=== PATIENT | female | born 1945 | race Caucasian/White ===

== ENCOUNTER 2022-08-23 01:12 | Emergency (ER) | payer MEDICARE ==
[~2022-08-23] VITALS: Ht 152.4 cm; Wt 65.3 kg
--- NOTE | 2022-08-23 01:40 | ED General ---
General Chief Complaint: Dizziness/Syncope Stated Complaint: DIZZY Nursing Triage Note: Patient states that she had gotten dizzy at approximately 23:00 last night. Patient also describes having a headache with this episode. Patient states that the dizziness has resolved but she still has a small headache. Patient has a history of HTN and she last took her blood pressure medication last night. Patient wanted to get checked out. Patient also had glaucoma surgery 1 week ago. Source of Information: Patient Exam Limitations: No Limitations History of Present Illness Date Seen by Provider: Aug 23, 2022 Time Seen by Provider: 01:16 Initial Comments 76-year-old female with past medical history of hypertension and hyperlipidemia coming in after she felt dizzy like the room was spinning around 11 PM last night. She states this was when she sat up quickly, the room was spinning around her, she laid back down. This lasted a few minutes, and the spinning sensation went away. Did have a headache shortly afterwards which now has resolved. The room spinning sensation resolved after less than 30 minutes. This has happened before and she has been told in the past that she potentially has vertigo. Does not take any medications for it. Has recently gotten over a sinus infection and finished antibiotics. Also had eye surgery about a week ago. She is otherwise denying any fever, chest pain, shortness of breath, abdominal pain, nausea, vomiting, diarrhea, focal weakness or numbness, current vision changes, hearing changes, speech changes, or any other concerns. She walked to the car and then walked through the ER she states. Allergies and Home Medications Allergies Coded Allergies: acetaminophen (Verified Allergy, Intermediate, Hives, 08/23/22) Patient Home Medication List Home Medication List Reviewed: Yes Meclizine HCl (Meclizine HCl) 25 Mg Tablet, 12.5 MG PO Q12H PRN for VERTIGO Prescribed by: LONDON TELLEZ on 08/23/22 0208 Review of Systems Review of Systems Constitutional: No fever EENTM: other (Vertigo which has resolved) Respiratory: no symptoms reported Cardiovascular: no symptoms reported Gastrointestinal: no symptoms reported Genitourinary: no symptoms reported Musculoskeletal: no symptoms reported Skin: no symptoms reported Psychiatric/Neurological: Headache (Mild) Immunological/Allergic: no symptoms reported Past Rouzcup-Hipiju-Siqmxz Hx Patient Social History Tobacco Use?: No Substance use?: No Alcohol Use?: No Pt feels they are or have been: No Immunizations Up To Date COVID19 Vaccine Advocacy Director: [place] Past Medical History Surgery/Hospitalization HX: HTN Surgeries: Yes (Eye surgery) Physical Exam Vital Signs Vital Signs - First Documented 08/23/22 01:15 Temp 37.0 Pulse 82 Resp 16 B/P (MAP) 215/81 (125) Pulse Ox 95 O2 Delivery Room Air Capillary Refill : Less Than 3 Seconds Height, Weight, BMI Height: '" Weight: lbs. oz. kg; 28.00 BMI Method: General Appearance: No Apparent Distress, WD/WN Eyes: Bilateral Eye Normal Inspection, Bilateral Eye PERRL, Bilateral Eye EOMI HEENT: PERRL/EOMI, TMs Normal, Normal ENT Inspection, Pharynx Normal Neck: Full Range of Motion, Normal Inspection, Non Tender, Supple Respiratory: Chest Non Tender, Lungs Clear, Normal Breath Sounds, No Accessory Muscle Use, No Respiratory Distress Cardiovascular: Regular Rate, Rhythm, No Edema, Normal Peripheral Pulses Gastrointestinal: Normal Bowel Sounds, Non Tender, Soft Back: Normal Inspection Extremity: Normal Capillary Refill, Normal Inspection, Normal Range of Motion, Non Tender, No Calf Tenderness, No Pedal Edema Neurologic/Psychiatric: Alert, Oriented x3, No Motor/Sensory Deficits, Normal Mood/Affect, night custodian II-XII Norm as Tested, Other (Normal [id number]-[id number], normal ptiy-qo-jzvn, normal gait, normal tandem gait, able to stand completely still with eyes closed without falling over) Skin: Normal Color, Warm/Dry Lymphatic: No Adenopathy Progress/Results/Core Measures Suspected Sepsis SIRS Temperature: Pulse: 82 Respiratory Rate: 16 Blood Pressure 215 /81 Mean: 125 Results/Orders My Orders Orders - LONDON TELLEZ MD Ct Head Wo (08/23/22 01:35) Ekg Tracing (08/23/22 01:41) Vital Signs/I&O 08/23/22 01:15 Temp 37.0 Pulse 82 Resp 16 B/P (MAP) 215/81 (125) Pulse Ox 95 O2 Delivery Room Air Capillary Refill : Less Than 3 Seconds Blood Pressure Mean: 125 Progress Note : Progress Note 76-year-old female with above history coming in due to several minutes of room spinning dizziness that was worse with sitting up and now has completely resolved. ABCs were intact and vitals were stable on presentation. Physical exam completely normal including comprehensive neurologic exam and her NIH scale would technically be 0. Symptoms sound more intense, very short-lived, and related to movement. This sounds more consistent with something such as BPPV. She states additionally that she has had symptoms like this in the past which would also fit that. Denies any prior history of stroke or any type of blood vessel abnormality such as CAD. She does not smoke and has not had A-fib making it less likely to have a stroke at this time. EKG ordered and interpreted by me showing normal sinus rhythm with no acute ischemic changes. She has never had any chest pain or discomfort associated with it. CT head ordered and interpreted by me showing no obvious hemorrhage. Patient is walking around the room without difficulty and has been at baseline her entire time here. I believe she is otherwise stable for discharge with outpatient follow-up. She was sent home with strict return precautions. Sent prescriptions for meclizine in case this comes back. I discussed that if the symptoms persist for more than an hour straight then she needs to present to the ER. ECG Initial ECG Impression Date: Aug 23, 2022 Initial ECG Impression Time: 01:22 Initial ECG Rate: 73 Initial ECG Rhythm: Normal Sinus Comment No QRS, normal axis, Q waves in leads III and aVF, no ST changes or T wave ab normalities, no prior EKG to compare to Diagnostic Imaging Diagonstic Imaging: CT (head) Reviewed: Reviewed [place] Study Departure Impression Primary Impression: Vertigo Disposition: 01 HOME, SELF-CARE Condition: Stable Departure-Patient Inst. Decision time for Depature: 03:03 Referrals: SELF,PIOTR CEDENO (PCP/Family) Primary Care Physician Patient Instructions: Vertigo (a Type of Dizziness) (DC) Add. Discharge Instructions: It would seem this is a temporary vertigo or dizziness that likely is caused from the ear. This can be quite intense when it happens, and typically has better when you stay still. If you have room spinning dizziness that is ongoing for more than 1 to 2 hours straight, then I would want you to present to the ER. You can try taking the meclizine prescription to see if that helps first. If you have any weakness or you cannot move 1 side of your body, numbness we cannot feel one-sided body, or blindness or you cannot see with 1 eye or vision cuts or you can see a portion of your vision that is new then I would want you to come immediately to the ER. Scripts Meclizine HCl (Meclizine HCl) 25 Mg Tablet 12.5 MG PO Q12H PRN for VERTIGO for 10 Days, #10 TAB Prov: LONDON TELLEZ MD 08/23/22 LONDON TELLEZ MD Aug 23, 2022 01:40
[2022-08-23] MEDS ORDERED: MECL-149 PO (02:08)
[2022-08-23 03:04] VITALS: BP 162/86
--- NOTE | 2022-08-23 03:43 | Diagnostic Imaging Report ---
PROCEDURE: CT head without contrast. TECHNIQUE: Multiple contiguous axial images were obtained through the brain without the use of intravenous contrast. Auto Exposure Controls were utilized during the CT exam to meet ALARA standards for radiation dose reduction. INDICATION: Headache and dizziness The ventricles are normal in size, shape and position. There are no masses or hemorrhages. There are no extra-axial fluid collections. There is minimal periventricular white matter ischemic change. IMPRESSION: Mild chronic ischemic leukoencephalopathy. No acute abnormality seen. I agree with preliminary interpretation. Dictated by: Dictated on workstation # [id number]
== END 2022-08-23 03:04 | disposition home or self-care (01) ==
LOC: ER FS 01:14
DX: R42 Dizziness and giddiness (principal)
CPT/HCPCS: 70450; 93005